=== PATIENT | male | born 1985 | race Caucasian/White ===

== ENCOUNTER 2017-06-04 11:41 | Observation (INO) | payer BC, OTHER ==
[2017-06-04] MEDS ORDERED: Sodium Chloride 0.9% 1,000 ML IV ONE (12:13)
--- NOTE | 2017-06-04 12:28 | EDM.PDOC ---
ED HPI GENERAL MEDICAL PROBLEM - General Chief Complaint: Lower Extremity Injury/Pain Stated Complaint: BOTTOM OF LT FOOT HAS INFECTION Time Seen by Provider: 06/04/17 12:10 Source of Information: Reports: Patient History Limitations: Reports: No Limitations - History of Present Illness INITIAL COMMENTS - FREE TEXT/NARRATIVE: HISTORY AND PHYSICAL: History of present illness: [Patient comes to the emergency room complaining of left foot redness swelling and pain. Symptoms of tenderness developed 3 days ago, yesterday he noticed redness and swelling to his foot, and today he noticed a wound to his lateral foot. His foot is exquisitely tender. He has not had any fever chills, nausea or vomiting, confusion, dizziness or lightheadedness. He drives truck for living. Quit using smokeless tobacco 3 weeks ago. Denies history of drug and alcohol use and smoking. He has a history of type 1 diabetes diagnosed in his mid 20s. He is on sliding scale insulin which she feels is not effective as his sugars are still running between 200-300. He has not seen a local primary care provider for the past at least 4 months, since he moved to [place].] Review of systems: As per history of present illness and below otherwise all systems reviewed and negative. Past medical history: As per history of present illness and as reviewed below otherwise noncontributory. Surgical history: As per history of present illness and as reviewed below otherwise noncontributory. Social history: No reported history of drug or alcohol abuse. Family history: As per history of present illness and as reviewed below otherwise noncontributory. Physical exam: General: WDWN, male in no acute distress. Appears in nontoxic. HEENT: Atraumatic, normocephalic. Oral mucous membranes are pink and moist., Lungs: Clear to auscultation, breath sounds equal bilaterally, chest nontender. Heart: S1S2, regular rhythm. Rate 105, negative for clicks, rubs, or JVD. Abdomen: Soft, nondistended, nontender. Negative for masses, guarding or rebound. Pelvis: Stable nontender. Genitourinary: Deferred. Rectal: Deferred. Extremities: Wound to left lateral foot measures 1cm in diameter, and lies over calloused tissue. Clear discharge is appreciated from wound. Brightly erythematous band across dorsum and sole of L midfoot. No streaking up his calf. Swelling extends to lower leg. Exquisitely tender with palpation. Capillary refill less than 2 seconds. Has full range of motion of foot and ankle. Lives with walking. Neurovascular unremarkable. Neuro: Awake, alert, oriented. Motor and sensory unremarkable throughout. Exam nonfocal. Diagnostics: [CBC, CMP, UA, blood cultures 2, hemoglobin A1c, lactic acid, left foot x-ray] Therapeutics: [1 L normal saline, vancomycin 1 gram IV] Impression: [Cellulitis L foot Diabetic foot ulcer L lateral foot Hyponatremia Type 1 diabetes Hyperglycemia ] Plan: [WBC 8.77, lactic acid 1.8, sodium 129, glucose 462, A1c 10.5, UA is largely unremarkable. Discussed w/ patient that hospitalization for IV antibiotics is indicated. Dr. Chance agrees to accept pt for observation. Patient is in agreement w/ plan. ] Definitive disposition and diagnosis as appropriate pending reevaluation and review of above. left foot Pain Score (Numeric/FACES): 8 - Related Data Allergies Allergy/AdvReac Type Severity Reaction Status Date / Time No Known Allergies Allergy Verified 06/04/17 11:54 Home Meds: Home Meds . [No Known Home Meds] 06/04/17 [History] Past Medical History HEENT History: Reports: None Cardiovascular History: Reports: None Respiratory History: Reports: None Gastrointestinal History: Reports: None Genitourinary History: Reports: None Musculoskeletal History: Reports: Amputation, Other (See Below) Other Musculoskeletal History: right thumb amputation Neurological History: Reports: None Psychiatric History: Reports: None Endocrine/Metabolic History: Reports: None Hematologic History: Reports: None Immunologic History: Reports: None Oncologic (Cancer) History: Reports: None Dermatologic History: Reports: None - Infectious Disease History Infectious Disease History: Reports: Chicken Pox, Other (See Below) Other Infectious Disease History: childhood - Past Surgical History Head Surgeries/Procedures: Reports: None HEENT Surgical History: Reports: None Cardiovascular Surgical History: Reports: None Respiratory Surgical History: Reports: None Male Surgical History: Reports: None Endocrine Surgical History: Reports: None Neurological Surgical History: Reports: None Musculoskeletal Surgical History: Reports: Other (See Below) Other Musculoskeletal Surgeries/Procedures:: L ACL, MCL, Menicus repair, ACL tunnel Oncologic Surgical History: Reports: None Dermatological Surgical History: Reports: None Social & Family History - Family History Family Medical History: Noncontributory - Tobacco Use Smoking Status *Q: Never Smoker Second Hand Smoke Exposure: No - Caffeine Use Caffeine Use: Reports: Coffee - Recreational Drug Use Recreational Drug Use: No Review of Systems - Review of Systems Review Of Systems: ROS reveals no pertinent complaints other than HPI. ED EXAM, GENERAL - Physical Exam Exam: See Below Course - Vital Signs Last Recorded V/S: Last Vital Signs Temp 98.1 F 06/04/17 15:23 Pulse 92 06/04/17 15:23 Resp 16 06/04/17 15:23 BP 131/79 06/04/17 15:23 Pulse Ox 99 06/04/17 15:23 - Orders/Labs/Meds Orders: Active Orders 24 hr Category Date Time Status CULTURE BLOOD [BC] Stat Lab 06/04/17 12:30 Received CULTURE BLOOD [BC] Stat Lab 06/04/17 12:38 Received Labs: Laboratory Tests 06/04/17 06/04/17 06/04/17 Range/Units 12:25 12:30 12:30 WBC 8.77 (4.0-11.0) K/uL RBC 4.75 (4.50-5.90) M/uL Hgb 14.1 (13.0-17.0) g/dL Hct 39.4 (38.0-50.0) % MCV 82.9 (80.0-98.0) fL MCH 29.7 (27.0-32.0) pg MCHC 35.8 (31.0-37.0) g/dL RDW Std Deviation 36.7 (28.0-62.0) fl RDW Coeff of Wendy 12 (11.0-15.0) % Plt Count 140 L (150-400) K/uL MPV 10.50 (7.40-12.00) fL Neut % (Auto) 76.8 (48.0-80.0) % Lymph % (Auto) 13.8 L (16.0-40.0) % Ref[place] % (Auto) 8.0 (0.0-15.0) % Eos % (Auto) 1.1 (0.0-7.0) % Baso % (Auto) 0.3 (0.0-1.5) % Neut # (Auto) 6.7 H (1.4-5.7) K/uL Lymph # (Auto) 1.2 (0.6-2.4) K/uL [place] # (Auto) 0.7 (0.0-0.8) K/uL Eos # (Auto) 0.1 (0.0-0.7) K/uL Baso # (Auto) 0.0 (0.0-0.1) K/uL Nucleated RBC % 0.0 /100WBC Nucleated RBCs # 0 K/uL Lactate 1.8 (0.20-2.00) mmol/L Sodium (136-148) mmol/L Potassium (3.5-5.1) mmol/L Chloride (98-107) mmol/L Carbon Dioxide (21.0-32.0) mmol/L BUN (7.0-18.0) mg/dL Creatinine (0.8-1.3) mg/dL Est Cr Clr Drug Dosing mL/min Estimated GFR (MDRD) ml/min Glucose (74-106) mg/dL Hemoglobin A1c (4.5-6.2) % Calcium (8.5-10.1) mg/dL Total Bilirubin (0.2-1.0) mg/dL AST (15-37) U/L ALT (14-63) U/L Alkaline Phosphatase (46-116) U/L Total Protein (6.4-8.2) g/dL Albumin (3.4-5.0) g/dL Globulin (2.0-3.5) g/dL Albumin/Globulin Ratio (1.3-2.8) Urine Color YELLOW Urine Appearance CLEAR Urine pH 5.5 (5.0-8.0) Ur Specific Sneads 1.010 (1.001-1.035) Urine Protein NEGATIVE (NEGATIVE) mg/dL Urine Glucose (UA) >=1000 (NEGATIVE) mg/dL Urine Ketones NEGATIVE (NEGATIVE) mg/dL Urine Occult Blood SMALL H (NEGATIVE) Urine Nitrite NEGATIVE (NEGATIVE) Urine Bilirubin NEGATIVE (NEGATIVE) Urine Urobilinogen 0.2 (<2.0) EU/dL Ur Leukocyte Esterase NEGATIVE (NEGATIVE) Urine RBC 0-2 (0-2/HPF) Urine WBC 0-1 (0-5/HPF) Ur Epithelial Cells RARE (NONE-FEW) Urine Bacteria RARE (NEGATIVE) 06/04/17 06/04/17 Range/Units 12:30 12:30 WBC (4.0-11.0) K/uL RBC (4.50-5.90) M/uL Hgb (13.0-17.0) g/dL Hct (38.0-50.0) % MCV (80.0-98.0) fL MCH (27.0-32.0) pg MCHC (31.0-37.0) g/dL RDW Std Deviation (28.0-62.0) fl RDW Coeff of Wendy (11.0-15.0) % Plt Count (150-400) K/uL MPV (7.40-12.00) fL Neut % (Auto) (48.0-80.0) % Lymph % (Auto) (16.0-40.0) % [place] % (Auto) (0.0-15.0) % Eos % (Auto) (0.0-7.0) % Baso % (Auto) (0.0-1.5) % Neut # (Auto) (1.4-5.7) K/uL Lymph # (Auto) (0.6-2.4) K/uL [place] # (Auto) (0.0-0.8) K/uL Eos # (Auto) (0.0-0.7) K/uL Baso # (Auto) (0.0-0.1) K/uL Nucleated RBC % /100WBC Nucleated RBCs # K/uL Lactate (0.20-2.00) mmol/L Sodium 129 L (136-148) mmol/L Potassium 4.7 (3.5-5.1) mmol/L Chloride 96 L (98-107) mmol/L Carbon Dioxide 23.8 (21.0-32.0) mmol/L BUN 10 (7.0-18.0) mg/dL Creatinine 1.0 (0.8-1.3) mg/dL Est Cr Clr Drug Dosing 109.50 mL/min Estimated GFR (MDRD) > 60.0 ml/min Glucose 462 H (74-106) mg/dL Hemoglobin A1c 10.5 H (4.5-6.2) % Calcium 8.9 (8.5-10.1) mg/dL Total Bilirubin 0.6 (0.2-1.0) mg/dL AST 31 (15-37) U/L ALT 53 (14-63) U/L Alkaline Phosphatase 160 H (46-116) U/L Total Protein 7.8 (6.4-8.2) g/dL Albumin 3.5 (3.4-5.0) g/dL Globulin 4.3 H (2.0-3.5) g/dL Albumin/Globulin Ratio 0.8 L (1.3-2.8) Urine Color Urine Appearance Urine pH (5.0-8.0) Ur Specific Sneads (1.001-1.035) Urine Protein (NEGATIVE) mg/dL Urine Glucose (UA) (NEGATIVE) mg/dL Urine Ketones (NEGATIVE) mg/dL Urine Occult Blood (NEGATIVE) Urine Nitrite (NEGATIVE) Urine Bilirubin (NEGATIVE) Urine Urobilinogen (<2.0) EU/dL Ur Leukocyte Esterase (NEGATIVE) Urine RBC (0-2/HPF) Urine WBC (0-5/HPF) Ur Epithelial Cells (NONE-FEW) Urine Bacteria (NEGATIVE) Meds: Medications Discontinued Medications Generic Name Dose Route Start Last Admin Trade Name Freq PRN Reason Stop Dose Admin Sodium Chloride 1,000 mls @ 999 mls/hr 06/04/17 12:13 06/04/17 12:35 Normal Saline IV 06/04/17 13:13 999 mls/hr STAT ONE Administration Vancomycin HCl 1 gm/ Sodium 250 mls @ 250 mls/hr 06/04/17 13:30 06/04/17 13: 39 Chloride IV 06/04/17 14:29 250 mls/hr ONETIME ONE Administration Departure - Departure Time of Disposition: 13:51 Disposition: Refer to Observation Condition: Good Clinical Impression: Diabetic foot ulcer, Cellulitis and abscess of foot, Hyperglycemia, Hyponatremia - Discharge Information - My Orders Last 24 Hours: My Active Orders 06/04/17 12:30 CULTURE BLOOD [BC] Stat 06/04/17 12:38 CULTURE BLOOD [BC] Stat - Assessment/Plan Last 24 Hours: My Active Orders 06/04/17 12:30 CULTURE BLOOD [BC] Stat 06/04/17 12:38 CULTURE BLOOD [BC] Stat
--- NOTE | 2017-06-04 13:22 | CR ---
EXAMINATION: Left foot HISTORY: Pain COMPARISON: None TECHNIQUE: 2 views FINDINGS: There is no acute osseous abnormality, dislocation, or fracture. Joint spaces and bone mine ralization appear normal. Soft tissue swelling noted along the dorsal aspect of the foot and overlyin g the fifth metatarsal laterally. IMPRESSION: Soft tissue swelling without an acute osseous abnormality.
[2017-06-04 13:25] LABS: CHLORIDE,CL 96 mmol/L (98-107); SODIUM,NA 129 mmol/L (136-148)
--- NOTE | 2017-06-04 15:35 | PCM.HP ---
H&P History of Present Illness - General Date of Service: 06/04/17 Admit Problem/Dx: Admission Diagnosis/Problem Admission Diagnosis/Problem Diabetic foot ulcer Source of Information: Patient History Limitations: Reports: No Limitations - History of Present Illness Initial Comments - Free Text/Narative: This is a 31-year-old male who is presenting with a left small toe injury which is now an open lesion and per his has bruised some purulent secretions, and for the last 24 hours has started to develop a cellulitic type infection. Patient has a significant past medical history of type 2 diabetes which she was diagnosed at the age of 20. Patient has not been under the greatest control due to poor follow-up and management by his previous PCP in [place]. Patient presently has a hemoglobin A1c of 10.5. It is only controlled via metformin this is the first lesion that has turned into a cellulitic infection by this patient. Patient states that he had mild fevers and pain that has now started to progress. She has not taken anything for the pain. No other complaints presented by the patient. left foot Pain Score (Numeric/FACES): 8 - Related Data Allergies/Adverse Reactions: Allergies Allergy/AdvReac Type Severity Reaction Status Date / Time No Known Allergies Allergy Verified 06/04/17 11:54 Home Medications: Home Meds Insulin Aspart [NovoLOG] See Protocol SUBCUT TID 06/04/17 [History] Insulin Glarg,Human.Rec.Analog [Lantus] 25 unit SUBCUT DAILY 06/04/17 [History] Past Medical History HEENT History: Reports: None Cardiovascular History: Reports: None Respiratory History: Reports: None Gastrointestinal History: Reports: None Genitourinary History: Reports: None Musculoskeletal History: Reports: Amputation, Other (See Below) Other Musculoskeletal History: right thumb amputation Neurological History: Reports: Neuropathy, Diabetic Psychiatric History: Reports: None Endocrine/Metabolic History: Reports: Diabetes, Type II Hematologic History: Reports: None Immunologic History: Reports: None Oncologic (Cancer) History: Reports: None Dermatologic History: Reports: Other (See Below) Other Dermatologic History: 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 - Infectious Disease History Infectious Disease History: Reports: Chicken Pox, Other (See Below) Other Infectious Disease History: childhood - Past Surgical History Head Surgeries/Procedures: Reports: None HEENT Surgical History: Reports: None Cardiovascular Surgical History: Reports: None Respiratory Surgical History: Reports: None Male Surgical History: Reports: None Endocrine Surgical History: Reports: None Neurological Surgical History: Reports: None Musculoskeletal Surgical History: Reports: Other (See Below) Other Musculoskeletal Surgeries/Procedures:: L ACL, MCL, Menicus repair, ACL tunnel Oncologic Surgical History: Reports: None Dermatological Surgical History: Reports: None Social & Family History - Family History Family Medical History: Noncontributory - Tobacco Use Smoking Status *Q: Never Smoker Second Hand Smoke Exposure: No - Caffeine Use Caffeine Use: Reports: Coffee, Soda - Recreational Drug Use Recreational Drug Use: No H&P Review of Systems - Review of Systems: Review Of Systems: ROS reveals no pertinent complaints other than HPI. Exam - Exam Exam: See Below - Vital Signs Vital Signs: Last Vital Signs Temp 36.7 C 06/04/17 15:23 Pulse 92 06/04/17 15:23 Resp 16 06/04/17 15:23 BP 131/79 06/04/17 15:23 Pulse Ox 99 06/04/17 15:23 Weight: 93.44 kg - Exam General: Alert, Oriented, Cooperative HEENT: Conjunctiva Clear, EOMI, Mucosa Moist & Mackey Neck: Supple Lungs: Clear to Auscultation, Normal Respiratory Effort Cardiovascular: Regular Rate, Regular Rhythm GI/Abdominal Exam: Normal Bowel Sounds, Soft Extremities: Redness, Other (Is a small quarter of a centimeter lesion on the lateral side of the small toe of the left foot. Erythema around the anterior thigh of the foot and anterior half of the bottom foot) - Patient Data Result Diagrams: 06/04/17 12:30 06/04/17 12:30 *Q Meaningful Use (ADM) - VTE *Q VTE Criteria *Q: - Stroke *Q Stroke Criteria *Q: - AMI *Q AMI Criteria *Q: Problem List Initiated/Reviewed/Updated: Yes Assessment/Plan Comment:: His is a 31-year-old male with a lesion to the left small toe resulting in erythema likely secondary to cellulitis. Patient has a significant past medical history type 2 diabetes uncontrolled in nature. For the cellulitic infection patient is started on Zosyn 600 mg IV every 6 hours. For the type 2 diabetes uncontrolled patient is on high dose insulin sliding scale along with Lantus 10 units at night with glucose checks. CBC, CMP in the a.m. Patient admitted under observation anticipated length of stay less than 2 midnights.
[2017-06-04] MEDS ORDERED: Ondansetron 4 MG/2 ML SDV IVPUSH PRN (17:26)
[2017-06-04] MEDS ORDERED: oxyCODONE 5 MG Tab PO PRN (17:26)
[2017-06-04] MEDS ORDERED: Morphine 2 MG/ML Syringe IVPUSH PRN (17:26)
[2017-06-04] MEDS ORDERED: Sodium Chloride 0.9% 10 ML Syringe FLUSH PRN (17:26)
[2017-06-04] MEDS ORDERED: Sodium Chloride 0.9% 2.5 ML Syringe FLUSH PRN (17:26)
[2017-06-04] MEDS ORDERED: Acetaminophen 325 MG Tab PO PRN (17:26)
[2017-06-04] MEDS ORDERED: Enoxaparin 40 MG/0.4 ML Syringe SUBCUT SCH (17:30)
[2017-06-04] MEDS: Clindamycin Phosphate in D5W 600 MG in Premix Bag 1 BAG IV SCH ×2 (17:55)
[2017-06-04] MEDS: Insulin Aspart 100 Units/ML 3 ML Pen SUBCUT SCH (19:44)
[2017-06-04] MEDS ORDERED: Insulin Glargine,Human Rec. Analog 100 Units/ML 3 ML Pen SUBCUT SCH ×2 (21:00)
[2017-06-05] MEDS: Clindamycin Phosphate in D5W 600 MG in Premix Bag 1 BAG IV SCH ×4 (00:53→09:48)
[2017-06-05 05:59] LABS: CHLORIDE,CL 101 mmol/L (98-107); SODIUM,NA 135 mmol/L (136-148)
[2017-06-05] MEDS: Insulin Aspart 100 Units/ML 3 ML Pen SUBCUT SCH ×2 (07:13→11:36)
[2017-06-05] MEDS ORDERED: Insulin Aspart 100 Units/ML 3 ML Pen SUBCUT SCH (07:30)
--- NOTE | 2017-06-05 11:03 | PCM.DCSUM1 ---
<Raul Olivier Z - Last Filed: 06/05/17 13:57> Discharge Summary - Hospital Course HPI Initial Comments: Discharge Summary Date of admission: 06/05/2079 Date of discharge: 06/05/2017 Admitting diagnosis: #1. Left small pinky toe abrasion resulting in cellulitis #2. Type II diabetic with blood glucose levels in the 400s #3. #4. #5. Discharge diagnoses: #1. Left toe cellulitis, requiring intervention/assessment by podiatry. #2. Type 2 diabetes with poor control, hemoglobin A1c of 10.5 #3. #4. #5. Consultations: None Procedures: None Hospitalization course: Patient was admitted due to elevated blood sugar levels along with a cellulitic infection secondary to a abrasion of the small pinky toe on the left. Patient was started on clindamycin every 6 600 mg IV. He did well on this dose overnight, the erythema has started to decrease, the only area of tenderness and pain is at the abrasion site. Patient's blood sugar levels have improved as well, patient was restarted on his Lantus dose of 25 units at night, along with high-dose insulin sliding scale. Patient has been assessed by diabetic education for their recommendations. Patient shall also follow up with myself in an outpatient setting. Due to how the abrasion appears it is important for the patient to be assessed by podiatry, patient shall be seeing Dr. Hardwick on 06/06/2017. Disposition on discharge: Home Condition on discharge: Stable Discharge medications: Clindamycin, restart of home as patient with increase of his Lantus from 25 units to 29 units Follow-up instructions: Dr. Hardwick, podiatry 06/06/2017, Dr. Olivier establishment of primary care physician, Diabetic Education outpatient. - Discharge Data Discharge Date: 06/05/17 Discharge Disposition: Home, Self-Care 01 Condition: Good - Patient Summary/Data Consults: Consultations 06/04/17 17:26 Consult to Diabetic Nurse Specialist [CONS] Routine - Patient Instructions Diet: Diabetic Diet Activity: As Tolerated Driving: May Drive Today Showering/Bathing: May Shower Notify Provider of: Fever, Increased Pain, Swelling and Redness, Drainage, Nausea and/or Vomiting - Discharge Plan Prescriptions/Med Rec: Clindamycin HCl [Cleocin] 600 mg PO Q8H 9 Days #30 cap Home Medications: Home Meds Clindamycin HCl [Cleocin] 600 mg PO Q8H 9 Days #30 cap 06/05/17 [Rx] Insulin Aspart [NovoLOG] See Protocol SUBCUT TID #1 box 06/05/17 [Rx] Insulin Glarg,Human.Rec.Analog [Lantus] 29 unit SUBCUT DAILY 30 Days #3 vial 10/16 [Rx] Patient Handouts: Diabetes and Foot Care, Hyponatremia, [id number], Clindamycin capsules, Hyperglycemia, [id number], Cellulitis, Adult, Easy-to- Read Referrals: Raul Olivier MD [Resident] - 06/17/17 2:30 pm Cecilio Hardwick DPM [Physician] - 06/06/17 4:30 pm - Discharge Summary/Plan Comment DC Time >30 min.: No - Patient Data Vitals - Most Recent: Last Vital Signs Temp 36.2 C 06/05/17 07:36 Pulse 86 06/05/17 07:36 Resp 16 06/05/17 07:36 BP 115/82 06/05/17 07:36 Pulse Ox 100 06/05/17 07:36 Weight - Most Recent: 93.44 kg I&O - Last 24 hours: Intake & Output 06/04/17 06/05/17 06/05/17 22:59 06:59 14:59 Intake Total 500 50 Output Total 900 Balance -400 50 Lab Results - Last 24 hrs: Laboratory Results - last 24 hr 06/04/17 06/04/17 06/04/17 Range/Units 15:21 17:27 19:43 WBC (4.0-11.0) K/uL RBC (4.50-5.90) M/uL Hgb (13.0-17.0) g/dL Hct (38.0-50.0) % MCV (80.0-98.0) fL MCH (27.0-32.0) pg MCHC (31.0-37.0) g/dL RDW Std Deviation (28.0-62.0) fl RDW Coeff of Wendy (11.0-15.0) % Plt Count (150-400) K/uL MPV (7.40-12.00) fL Neut % (Auto) (48.0-80.0) % Lymph % (Auto) (16.0-40.0) % Mcpherson % (Auto) (0.0-15.0) % Eos % (Auto) (0.0-7.0) % Baso % (Auto) (0.0-1.5) % Neut # (Auto) (1.4-5.7) K/uL Lymph # (Auto) (0.6-2.4) K/uL Mcpherson # (Auto) (0.0-0.8) K/uL Eos # (Auto) (0.0-0.7) K/uL Baso # (Auto) (0.0-0.1) K/uL Nucleated RBC % /100WBC Nucleated RBCs # K/uL Sodium (136-148) mmol/L Potassium (3.5-5.1) mmol/L Chloride (98-107) mmol/L Carbon Dioxide (21.0-32.0) mmol/L BUN (7.0-18.0) mg/dL Creatinine (0.8-1.3) mg/dL Est Cr Clr Drug Dosing mL/min Estimated GFR (MDRD) ml/min Glucose (74-106) mg/dL POC Glucose 308 H 277 H 322 H (60-110) mg/dL Calcium (8.5-10.1) mg/dL Total Bilirubin (0.2-1.0) mg/dL AST (15-37) U/L ALT (14-63) U/L Alkaline Phosphatase (46-116) U/L Total Protein (6.4-8.2) g/dL Albumin (3.4-5.0) g/dL Globulin (2.0-3.5) g/dL Albumin/Globulin Ratio (1.3-2.8) 06/04/17 06/05/17 06/05/17 Range/Units 20:57 04:50 04:50 WBC 6.02 (4.0-11.0) K/uL RBC 4.55 (4.50-5.90) M/uL Hgb 13.4 (13.0-17.0) g/dL Hct 37.9 L (38.0-50.0) % MCV 83.3 (80.0-98.0) fL MCH 29.5 (27.0-32.0) pg MCHC 35.4 (31.0-37.0) g/dL RDW Std Deviation 37.4 (28.0-62.0) fl RDW Coeff of Wendy 13 (11.0-15.0) % Plt Count 131 L (150-400) K/uL MPV 10.20 (7.40-12.00) fL Neut % (Auto) 61.5 (48.0-80.0) % Lymph % (Auto) 27.9 (16.0-40.0) % Mcpherson % (Auto) 8.1 (0.0-15.0) % Eos % (Auto) 1.7 (0.0-7.0) % Baso % (Auto) 0.8 (0.0-1.5) % Neut # (Auto) 3.7 (1.4-5.7) K/uL Lymph # (Auto) 1.7 (0.6-2.4) K/uL Mcpherson # (Auto) 0.5 (0.0-0.8) K/uL Eos # (Auto) 0.1 (0.0-0.7) K/uL Baso # (Auto) 0.1 (0.0-0.1) K/uL Nucleated RBC % 0.0 /100WBC Nucleated RBCs # 0 K/uL Sodium 135 L (136-148) mmol/L Potassium 4.2 (3.5-5.1) mmol/L Chloride 101 (98-107) mmol/L Carbon Dioxide 26.9 (21.0-32.0) mmol/L BUN 12 (7.0-18.0) mg/dL Creatinine 0.8 (0.8-1.3) mg/dL Est Cr Clr Drug Dosing 136.88 mL/min Estimated GFR (MDRD) > 60.0 ml/min Glucose 223 H (74-106) mg/dL POC Glucose 328 H (60-110) mg/dL Calcium 8.8 (8.5-10.1) mg/dL Total Bilirubin 0.5 (0.2-1.0) mg/dL AST 26 (15-37) U/L ALT 47 (14-63) U/L Alkaline Phosphatase 130 H (46-116) U/L Total Protein 7.4 (6.4-8.2) g/dL Albumin 3.2 L (3.4-5.0) g/dL Globulin 4.2 H (2.0-3.5) g/dL Albumin/Globulin Ratio 0.8 L (1.3-2.8) 06/05/17 Range/Units 06:45 WBC (4.0-11.0) K/uL RBC (4.50-5.90) M/uL Hgb (13.0-17.0) g/dL Hct (38.0-50.0) % MCV (80.0-98.0) fL MCH (27.0-32.0) pg MCHC (31.0-37.0) g/dL RDW Std Deviation (28.0-62.0) fl RDW Coeff of Wendy (11.0-15.0) % Plt Count (150-400) K/uL MPV (7.40-12.00) fL Neut % (Auto) (48.0-80.0) % Lymph % (Auto) (16.0-40.0) % Mcpherson % (Auto) (0.0-15.0) % Eos % (Auto) (0.0-7.0) % Baso % (Auto) (0.0-1.5) % Neut # (Auto) (1.4-5.7) K/uL Lymph # (Auto) (0.6-2.4) K/uL Mcpherson # (Auto) (0.0-0.8) K/uL Eos # (Auto) (0.0-0.7) K/uL Baso # (Auto) (0.0-0.1) K/uL Nucleated RBC % /100WBC Nucleated RBCs # K/uL Sodium (136-148) mmol/L Potassium (3.5-5.1) mmol/L Chloride (98-107) mmol/L Carbon Dioxide (21.0-32.0) mmol/L BUN (7.0-18.0) mg/dL Creatinine (0.8-1.3) mg/dL Est Cr Clr Drug Dosing mL/min Estimated GFR (MDRD) ml/min Glucose (74-106) mg/dL POC Glucose 232 H (60-110) mg/dL Calcium (8.5-10.1) mg/dL Total Bilirubin (0.2-1.0) mg/dL AST (15-37) U/L ALT (14-63) U/L Alkaline Phosphatase (46-116) U/L Total Protein (6.4-8.2) g/dL Albumin (3.4-5.0) g/dL Globulin (2.0-3.5) g/dL Albumin/Globulin Ratio (1.3-2.8) Med Orders - Current: Current Medications Acetaminophen (Tylenol) 650 mg PO Q4H PRN PRN Reason: Pain (Mild 1-3)/fever Enoxaparin Sodium (Lovenox) 40 mg SUBCUT Q24H [facility] Last Admin: 06/04/17 17:56 Dose: 40 mg Clindamycin Phosphate 600 mg/ (Premix) 50 mls @ 92.593 mls/hr IV Q8H [facility] Last Admin: 06/05/17 09:48 Dose: 92.593 mls/hr Insulin Aspart (Novolog) 0 unit SUBCUT TIDAC [facility] PRN Reason: Protocol Last Admin: 06/05/17 07:13 Dose: 6 unit Insulin Glargine (Lantus Solostar) 25 units SUBCUT BEDTIME [facility] Last Admin: 06/04/17 20:57 Dose: 25 unit Morphine Sulfate (Morphine) 2 mg IVPUSH Q2H PRN PRN Reason: Pain (severe 7-10) Ondansetron HCl (Zofran) 4 mg IVPUSH Q4H PRN PRN Reason: Nausea/Vomiting Oxycodone HCl (Oxycodone) 5 mg PO Q4H PRN PRN Reason: Pain (moderate 4-6) Sodium Chloride (Saline Flush) 10 ml FLUSH ASDIRECTED PRN PRN Reason: Keep Vein Open Sodium Chloride (Saline Flush) 2.5 ml FLUSH ASDIRECTED PRN PRN Reason: Keep Vein Open Discontinued Medications Sodium Chloride (Normal Saline) 1,000 mls @ 999 mls/hr IV STAT ONE Stop: 06/04/17 13:13 Last Admin: 06/04/17 12:35 Dose: 999 mls/hr Vancomycin HCl 1 gm/ Sodium (Chloride) 250 mls @ 250 mls/hr IV ONETIME ONE Stop: 06/04/17 14:29 Last Admin: 06/04/17 13:39 Dose: 250 mls/hr Insulin Aspart (Novolog) 0 unit SUBCUT TIDAC [facility] PRN Reason: Protocol Insulin Glargine (Lantus Solostar) 10 units SUBCUT BEDTIME SHELLIE *Q Meaningful Use (DIS) - VTE *Q VTE Criteria *Q: - Stroke *Q Stroke Criteria *Q: - AMI *Q AMI Criteria *Q: <Ryan Chance - Last Filed: 06/06/17 20:37> Discharge Summary - Patient Summary/Data Consults: Consultations 06/04/17 17:26 Consult to Diabetic Nurse Specialist [CONS] Routine - Patient Data Vitals - Most Recent: Last Vital Signs Temp 36.4 C 06/05/17 11:00 Pulse 83 06/05/17 11:00 Resp 16 06/05/17 11:00 BP 116/79 06/05/17 11:00 Pulse Ox 100 06/05/17 11:00 Med Orders - Current: Current Medications Discontinued Medications Acetaminophen (Tylenol) 650 mg PO Q4H PRN PRN Reason: Pain (Mild 1-3)/fever Enoxaparin Sodium (Lovenox) 40 mg SUBCUT Q24H [facility] Last Admin: 06/04/17 17:56 Dose: 40 mg Sodium Chloride (Normal Saline) 1,000 mls @ 999 mls/hr IV STAT ONE Stop: 06/04/17 13:13 Last Admin: 06/04/17 12:35 Dose: 999 mls/hr Vancomycin HCl 1 gm/ Sodium (Chloride) 250 mls @ 250 mls/hr IV ONETIME ONE Stop: 06/04/17 14:29 Last Admin: 06/04/17 13:39 Dose: 250 mls/hr Clindamycin Phosphate 600 mg/ (Premix) 50 mls @ 92.593 mls/hr IV Q8H [facility] Last Admin: 06/05/17 09:48 Dose: 92.593 mls/hr Insulin Aspart (Novolog) 0 unit SUBCUT TIDAC SHELLIE PRN Reason: Protocol Insulin Aspart (Novolog) 0 unit SUBCUT TIDAC SHELLIE PRN Reason: Protocol Last Admin: 06/05/17 11:36 Dose: 6 unit Insulin Glargine (Lantus Solostar) 10 units SUBCUT BEDTIME SHELLIE Insulin Glargine (Lantus Solostar) 25 units SUBCUT BEDTIME [facility] Last Admin: 06/04/17 20:57 Dose: 25 unit Morphine Sulfate (Morphine) 2 mg IVPUSH Q2H PRN PRN Reason: Pain (severe 7-10) Ondansetron HCl (Zofran) 4 mg IVPUSH Q4H PRN PRN Reason: Nausea/Vomiting Oxycodone HCl (Oxycodone) 5 mg PO Q4H PRN PRN Reason: Pain (moderate 4-6) Sodium Chloride (Saline Flush) 10 ml FLUSH ASDIRECTED PRN PRN Reason: Keep Vein Open Sodium Chloride (Saline Flush) 2.5 ml FLUSH ASDIRECTED PRN PRN Reason: Keep Vein Open *Q Meaningful Use (DIS) - VTE *Q VTE Criteria *Q: - Stroke *Q Stroke Criteria *Q: - AMI *Q AMI Criteria *Q: - Free Text/Narrative Note: I have examined the patient. I have discussed findings and treatment plan with the resident. I agree with the assessment and plan outlined in the following resident's note.
== END 2017-06-05 13:10 | disposition home or self-care (01) ==
LOC: MW.ED 11:41 → MW.MS 13:51 → MW.ED 14:50
PROVIDERS: ADMIT Internal Medicine; ATTEND Internal Medicine
DX: L03.032 Cellulitis of left toe (principal); E11.65 Type 2 diabetes mellitus with hyperglycemia; E11.40 Type 2 diabetes mellitus with diabetic neuropathy, unspecified; Z79.4 Long term (current) use of insulin
CPT/HCPCS: 36415; 73620; 80053; 81001; 82962; 83036; 83605; 85025; 87040; 96361; 96365; 96366; 96367; 96372; 99284; G0378; J1650; J1815; J3370; J7040; J7050

== ENCOUNTER 2018-07-13 19:05 | Emergency (ER) | payer BC ==
[2018-07-13] MEDS ORDERED: Sodium Chloride 0.9% 1,000 ML IV ONE (19:53)
[2018-07-13] MEDS ORDERED: diphenhydrAMINE 50 MG/ML SDV IVPUSH ONE (19:53)
[2018-07-13] MEDS ORDERED: Metoclopramide 10 MG/2 ML SDV IV ONE (19:53)
[2018-07-13] MEDS ORDERED: Ketorolac 30 MG/ML SDV IVPUSH ONE (19:53)
[2018-07-13] MEDS ORDERED: Ondansetron 4 MG/2 ML SDV IVPUSH ONE (19:53)
--- NOTE | 2018-07-13 20:44 | CT ---
INDICATION: Nontraumatic headaches TECHNIQUE: CT head without contrast. COMPARISON: None FINDINGS: CSF spaces: Within normal limits for age. Brain parenchyma: The solis-white differentiation is normal. No sign of mass, hemorrhage, or midline shift. Skull base and calvarium: Mucosal thickening involving the ethmoid, sphenoid and left maxillary and frontal sinuses. Obstruction of the left ostiomeatal complex. The visualized orbits are grossly unremarkable. No skull fractures. IMPRESSION: No gross intracranial abnormalities. Pansinus disease. Obstruction of the left ostiomeatal complex. Dictated by Andrea Monet MD @ 07/13/2018 8:43:22 PM Please note that all CT scans at this facility use dose modulation, iterative reconstruction, and/or weight-based dosing when appropriate to reduce radiation dose to as low as reasonably achievable. Dictated by: Andrea Monet MD @ 07/13/2018 20:43:31 (Electronically Signed)
--- NOTE | 2018-07-13 21:03 | EDM.PDOC ---
ED HPI GENERAL MEDICAL PROBLEM - General Chief Complaint: Headache Stated Complaint: HEADACHE Time Seen by Provider: 07/13/18 19:27 Source of Information: Reports: Patient History Limitations: Reports: No Limitations - History of Present Illness INITIAL COMMENTS - FREE TEXT/NARRATIVE: HISTORY AND PHYSICAL: History of present illness: Patient is a 32-year-old male who presents to the ED today with concern of a 10 out of 10 headache since this morning. Patient states he's taken a few tabs of Tylenol at home for her symptoms without relief. Patient states he does have a history of headaches in the past and sees had viral meningitis many years ago. Patient states since of meningitis he often has headaches. Patient states he's had some nausea with this headache which is not unusual for him. Patient denies fever, chills, chest pain, shortness of breath, or cough. Denies neck stiff ness, change in vision, syncope, or near syncope. Denies nausea, vomiting, abdominal pain, diarrhea, constipation, or dysuria. Has not noted any blood in urine or stool. Patient has been eating and drinking appropriately. Review of systems: As per history of present illness and below otherwise all systems reviewed and negative. Past medical history: As per history of present illness and as reviewed below otherwise noncontributory. Surgical history: As per history of present illness and as reviewed below otherwise noncontributory. Social history: See social history for further information Family history: As per history of present illness and as reviewed below otherwise noncontributory. Physical exam: General: Patient is alert, oriented, and in no acute distress. Patient sitting comfortably on exam table. HEENT: Atraumatic, normocephalic, pupils equal and reactive bilaterally, negative for conjunctival pallor or scleral icterus, mucous membranes moist, TMs normal bilaterally, throat clear, neck supple, nontender, trachea midline. No drooling or trismus noted. No meningeal signs. No hot potato voice noted. Lungs: Clear to auscultation, breath sounds equal bilaterally, chest nontender. Heart: S1S2, regular rate and rhythm without overt murmur Abdomen: Soft, nondistended, nontender. Negative for masses or hepatosplenomegaly. Negative for costovertebral tenderness. Pelvis: Stable nontender. Genitourinary: Deferred. Rectal: Deferred. Skin: Intact, warm, dry. No lesions or rashes noted. Extremities: Atraumatic, negative for cords or calf pain. Neurovascular unremarkable. Neuro: Awake, alert, oriented. Cranial nerves II through XII unremarkable. Cerebellum unremarkable. Motor and sensory unremarkable throughout. Exam nonfocal. Notes: Patient does request imaging at this time despite his chronic headaches. Discussed the importance for follow-up with his primary care provider. Voices understanding and is agreeable to plan of care. Denies any further questions or concerns at time. Diagnostics: Head CT Therapeutics: Saline, Toradol, Zofran, Benadryl, Reglan Prescription: Augmentin Impression: Headache Pansinusitis Plan: 1. Take medications as prescribed. You can alternate ibuprofen and Tylenol as directed for pain and discomfort. 2. Follow-up with your primary care provider as discussed. 3. Return to the ED as needed and as discussed. Definitive disposition and diagnosis as appropriate pending reevaluation and review of above. - Related Data Allergies Allergy/AdvReac Type Severity Reaction Status Date / Time No Known Allergies Allergy Verified 07/13/18 19:18 Home Meds: Home Meds Insulin Aspart [NovoLOG] See Protocol SUBCUT TID #1 box 06/05/17 [Rx] Past Medical History HEENT History: Reports: None Cardiovascular History: Reports: None Respiratory History: Reports: None Gastrointestinal History: Reports: None Genitourinary History: Reports: None Musculoskeletal History: Reports: Amputation, Other (See Below) Other Musculoskeletal History: right thumb amputation Neurological History: Reports: Neuropathy, Diabetic Psychiatric History: Reports: None Endocrine/Metabolic History: Reports: Diabetes, Type II Hematologic History: Reports: None Immunologic History: Reports: None Oncologic (Cancer) History: Reports: None Dermatologic History: Reports: Other (See Below) Other Dermatologic History: 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 - Infectious Disease History Infectious Disease History: Reports: Chicken Pox Other Infectious Disease History: childhood - Past Surgical History Head Surgeries/Procedures: Reports: None Musculoskeletal Surgical History: Reports: Other (See Below) Other Musculoskeletal Surgeries/Procedures:: L ACL, MCL, Menicus repair, ACL tunnel Social & Family History - Family History Family Medical History: Noncontributory - Tobacco Use Years of Tobacco use: 15 Packs/Tins Daily: 1 - Caffeine Use Caffeine Use: Reports: Soda - Recreational Drug Use Recreational Drug Use: No ED ROS GENERAL - Review of Systems Review Of Systems: ROS reveals no pertinent complaints other than HPI. - Physical Exam Exam: See Below (See dictation) Course - Vital Signs Last Recorded V/S: Last Vital Signs Temp 36.0 C 07/13/18 19:16 Pulse 95 07/13/18 19:16 Resp 16 07/13/18 19:16 BP 162/96 H 07/13/18 19:16 Pulse Ox 99 07/13/18 19:16 - Orders/Labs/Meds Meds: Medications Discontinued Medications Generic Name Dose Route Start Last Admin Trade Name Dimitri PRN Reason Stop Dose Admin Diphenhydramine HCl 50 mg 07/13/18 19:53 07/13/18 20:01 Benadryl IVPUSH 07/13/18 19:54 50 mg ONETIME ONE Administration Sodium Chloride 1,000 mls @ 999 mls/hr 07/13/18 19:53 07/13/18 20:06 Normal Saline IV 07/13/18 20:53 999 mls/hr STAT ONE Administration Ketorolac Tromethamine 30 mg 07/13/18 19:53 07/13/18 19:59 Toradol IVPUSH 07/13/18 19:54 30 mg ONETIME ONE Administration Metoclopramide HCl 10 mg 07/13/18 19:53 07/13/18 20:03 Reglan IV 07/13/18 19:54 10 mg ONETIME ONE Administration Ondansetron HCl 4 mg 07/13/18 19:53 07/13/18 20:00 Zofran IVPUSH 07/13/18 19:54 4 mg ONETIME ONE Administration Departure - Departure Time of Disposition: 21:02 Disposition: Home, Self-Care 01 Clinical Impression: Headache Qualifiers: Headache type: unspecified Headache chronicity pattern: acute headache Intractability: not intractable Qualified Code(s): R51 - Headache Pansinusitis Qualifiers: Chronicity: unspecified Qualified Code(s): J32.4 - Chronic pansinusitis - Discharge Information Instructions: Sinusitis, Adult, [id number] Referrals: PCP,None [Primary Care Provider] - Additional Instructions: The following information is given to patients seen in the emergency department who are being discharged to home. This information is to outline your options for follow-up care. We provide all patients seen in our emergency department with a follow-up referral. The need for follow-up, as well as the timing and circumstances, are variable depending upon the specifics of your emergency department visit. If you don't have a primary care physician on staff, we will provide you with a referral. We always advise you to contact your personal physician following an emergency department visit to inform them of the circumstance of the visit and for follow-up with them and/or the need for any referrals to a consulting specialist. The emergency department will also refer you to a specialist when appropriate. This referral assures that you have the opportunity for follow-up care with a specialist. All of these measure are taken in an effort to provide you with optimal care, which includes your follow-up. Under all circumstances we always encourage you to contact your private physician who remains a resource for coordinating your care. When calling for follow-up care, please make the office aware that this follow-up is from your recent emergency room visit. If for any reason you are refused follow-up, please contact the [facility] at and asked to speak to the emergency department charge nurse. [facility] [address] [place] [address] [place] [address] 1. Take medications as prescribed. You can alternate ibuprofen and Tylenol as directed for pain and discomfort. 2. Follow-up with your primary care provider as discussed. 3. Return to the ED as needed and as discussed.
== END 2018-07-13 21:20 | disposition home or self-care (01) ==
LOC: MW.ED 19:05
DX: J32.4 Chronic pansinusitis (principal); E11.9 Type 2 diabetes mellitus without complications
CPT/HCPCS: 70450; 96361; 96374; 96375; 99284; J1200; J1885; J2405; J2765; J7040; 99283

== ENCOUNTER 2019-06-21 10:58 | Emergency (ER) | payer BC ==
--- NOTE | 2019-06-21 12:51 | EDM.PDOC ---
ED HPI GENERAL MEDICAL PROBLEM - General Chief Complaint: Respiratory Problem Stated Complaint: COUGH AND SOB Time Seen by Provider: 06/21/19 12:03 - History of Present Illness INITIAL COMMENTS - FREE TEXT/NARRATIVE: 33-year-old gentleman history of diabetes presenting to ER for cough runny nose. Symptoms have been going on for 3 days. Denies any recent travel. No hemoptysis. Some shortness of breath while he is coughing.. Non-smoker no history of asthma.. Denies leg swelling. Reports subjective fever. No other associated symptoms. - Related Data Allergies Allergy/AdvReac Type Severity Reaction Status Date / Time No Known Allergies Allergy Verified 06/21/19 11:11 Home Meds: Home Meds Insulin Aspart [NovoLOG] See Protocol SUBCUT TID #1 box 06/05/17 [Rx] Non-Formulary Medication [NF Drug] 1 each PO DAILY 06/21/19 [History] Past Medical History HEENT History: Reports: None Cardiovascular History: Reports: None Respiratory History: Reports: None Gastrointestinal History: Reports: None Genitourinary History: Reports: None Musculoskeletal History: Reports: Amputation, Other (See Below) Other Musculoskeletal History: right thumb amputation Neurological History: Reports: Neuropathy, Diabetic Psychiatric History: Reports: None Endocrine/Metabolic History: Reports: Diabetes, Type II Hematologic History: Reports: None Immunologic History: Reports: None Oncologic (Cancer) History: Reports: None Dermatologic History: Reports: Other (See Below) Other Dermatologic History: 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 - Infectious Disease History Infectious Disease History: Reports: Chicken Pox Other Infectious Disease History: childhood - Past Surgical History Head Surgeries/Procedures: Reports: None Musculoskeletal Surgical History: Reports: Carpal Tunnel, Other (See Below) Other Musculoskeletal Surgeries/Procedures:: L ACL, MCL, Menicus repair, ACL tunnel Social & Family History - Family History Family Medical History: Noncontributory - Tobacco Use Smoking Status *Q: Never Smoker - Caffeine Use Caffeine Use: Reports: Soda - Recreational Drug Use Recreational Drug Use: No ED ROS GENERAL - Review of Systems Review Of Systems: Comprehensive ROS is negative, except as noted in HPI. ED EXAM, GENERAL - Physical Exam Exam: See Below Exam Limited By: Altered Mental Status General Appearance: Alert Ears: Normal External Exam Nose: Normal Inspection Neck: Normal Inspection Respiratory/Chest: No Respiratory Distress, Lungs Clear, Normal Breath Sounds, No Accessory Muscle Use Cardiovascular: Regular Rate, Rhythm, No Edema, No Gallop, No JVD, No Murmur, No Rub GI/Abdominal: Soft, Non-Tender Extremities: Normal Inspection Neurological: Alert Psychiatric: Normal Affect Skin Exam: Warm Course - Vital Signs Last Recorded V/S: Last Vital Signs Temp 97.2 F 06/21/19 14:03 Pulse 98 06/21/19 14:03 Resp 16 06/21/19 14:03 BP 143/97 H 06/21/19 14:03 Pulse Ox 97 06/21/19 14:03 - Orders/Labs/Meds Labs: Laboratory Tests 06/21/19 Range/Units 12:29 POC Glucose 173 H (60-110) mg/dL - Re-Assessments/Exams Free Text/Narrative Re-Assessment/Exam: 06/21/19 14:12 Patient hemodynamically stable. Afebrile not hypoxic. Well-appearing in no distress. Chest x-ray did not show pneumonia or infiltrates. I educated the patient on Covid precautions. Told him to self isolate, he verbalized understanding also educated him on return precautions. Likely from viral URI. As per guidelines and due to the national shortage of supplies testing we are unable to check for Covid at this time Departure - Departure Time of Disposition: 13:59 Disposition: Home, Self-Care 01 Clinical Impression: URI (upper respiratory infection) - Discharge Information Instructions: Upper Respiratory Infection, Adult Referrals: Jef Montelongo MD [Primary Care Provider] - Forms: ED Department Discharge Additional Instructions: self isolate until: You have had no fever for at least 72 hours (that is three full days of no fever without the use medicine that reduces fevers) AND other symptoms have improved (for example, when your cough or shortness of breath have improved) AND at least 7 days have passed since your symptoms first appeared return to ed if you develop wrosening shortness of breath, confusion, turn blue , persistent fever or any concerns. The following information is given to patients seen in the emergency department who are being discharged to home. This information is to outline your options for follow-up care. We provide all patients seen in our emergency department with a follow-up referral. The need for follow-up, as well as the timing and circumstances, are variable depending upon the specifics of your emergency department visit. If you don't have a primary care physician on staff, we will provide you with a referral. We always advise you to contact your personal physician following an emergency department visit to inform them of the circumstance of the visit and for follow-up with them and/or the need for any referrals to a consulting specialist. The emergency department will also refer you to a specialist when appropriate. This referral assures that you have the opportunity for follow-up care with a specialist. All of these measure are taken in an effort to provide you with optimal care, which includes your follow-up. Under all circumstances we always encourage you to contact your private physician who remains a resource for coordinating your care. When calling for follow-up care, please make the office aware that this follow-up is from your recent emergency room visit. If for any reason you are refused follow-up, please contact the [facility] Emergency Department at and asked to speak to the emergency department charge nurse. Sepsis Event Note - Evaluation Sepsis Screening Result: No Definite Risk - Focused Exam Vital Signs: Vital Signs Temp Pulse Resp BP Pulse Ox 06/21/19 14:03 97.2 F 98 16 143/97 H 97 06/21/19 13:28 84 16 97 06/21/19 12:46 89 18 153/101 H 97 06/21/19 11:12 97.9 F 96 17 171/113 H 99 Date Exam was Performed: 06/21/19 Time Exam was Performed: 21:30
--- NOTE | 2019-06-21 13:19 | CR ---
INDICATION: Cough. Dyspnea. TECHNIQUE: AP portable chest. FINDINGS: Shallow inspiration. Grossly clear lungs. Normal heart size and pulmonary vascularity. The included skeleton is unremarkable. IMPRESSION: Shallow inspiration. No acute cardiopulmonary process confidently identified. Dictated by Malcolm Hoffman MD @ Jun 21 2019 1:17PM Signed by Dr. Malcolm Hoffman @ Jun 21 2019 1:17PM
== END 2019-06-21 14:20 | disposition home or self-care (01) ==
LOC: MW.ED 10:58
DX: J06.9 Acute upper respiratory infection, unspecified (principal); E11.40 Type 2 diabetes mellitus with diabetic neuropathy, unspecified; Z79.4 Long term (current) use of insulin
CPT/HCPCS: 71045; 71045-26; 82962; 99282; 99285-25